=== PATIENT | male | born 1955 | race Caucasian/White ===

== ENCOUNTER 2016-06-03 11:41 | Emergency (ER) | payer OTHER ==
[~2016-06-03] VITALS: Ht 175.3 cm; Wt 93.9 kg
[~2016-06-03 11:41] MED LIST: ALPH-E-MIXED-4400 IU PO; AUGMENTIN 500M500 MG PO; CIPRO 500MG TA500 MG PO; FLAG500 PO; FLAGYL 25O MG250 M1 PO; HYDRALAZINE HCL25 MG PO; HYDRALAZINE HCL50 MG PO; MAGNESIUM CITR100 MG PO; MELOXICAM7.5 MG PO; NORVASC 10MG10 MG PO; OXYCODONE5 MG PO; PERCOCET 325 MG1 TA2 PO; VIAGRA25 M1 PO; VITAMIN B6200 M1 PO; ZETIA10 M1 PO
--- NOTE | 2016-06-03 12:00 | ED GENERAL ADULT ---
History of Present Illness General Chief Complaint: Dizziness Stated Complaint: DIZZINESS Vital Signs & Intake/Output Vital Signs & Intake/Output Vital Signs Date Time Temp Pulse Resp B/P Pulse O2 O2 Flow FiO2 Ox Delivery Rate 06/03 1218 98 Room Air 06/03 1144 96.5 61 20 155/83 99 Room Air Allergies Coded Allergies: NO KNOWN ALLERGIES (09/08/15) Reconcile Medications Ezetimibe (Zetia) 10 MG TAB 1 TAB PO DAILY LIPIDS (Reported) Triage Note: PT TO ED C/O RINGING IN EARS AND DIZZINESS X A COUPLE DAYS. C/O FEELING SHAKY AND CLAMY. Past History Travel History Traveled to [place] past 21 day No Medical History EENT: NONE Cardiovascular: hyperlipidemia Respiratory: NONE Gastrointestinal: diverticulitis, PERF BOWEL OMENTAL INFARCTION Hepatic: NONE Renal: KIDNEY STONES Musculoskeletal: NONE Psychiatric: NONE Endocrine: NONE Blood Disorders: NONE ASSESSMENT SPECIALIST/Reproductive: NONE History of MRSA: No History of VRE: No History of CDIFF: No Tetanus Vaccine: 01/26/16 Surgical History Surgical History: LITHOTRIPSY Psychosocial History Who do you live with Spouse What is your primary language [place] Citizen Tobacco Use: Quit >30 days ago ETOH Use: denies use Illicit Drug Use: marijuana Departure Departure Condition: Stable Referrals: STUART ROGEL,EDA Ibrahim (PCP/Family) Departure Forms: Customer Survey General Discharge Information
--- NOTE | 2016-06-03 12:51 | ED AMS/SEIZURE/WEAK/DIZZY ---
History of Present Illness General Chief Complaint: Dizziness Stated Complaint: DIZZINESS Source: patient, family Exam Limitations: no limitations Vital Signs & Intake/Output Vital Signs & Intake/Output ED Intake and Output 06/04 0000 06/03 1200 Intake Total Output Total Balance Patient 207 lb Weight Allergies Coded Allergies: NO KNOWN ALLERGIES (09/08/15) Reconcile Medications Ezetimibe (Zetia) 10 MG TAB 1 TAB PO DAILY LIPIDS (Reported) Levofloxacin (Levaquin) 500 MG TABLET 1 TAB PO DAILY UTI Triage Note: PT TO ED C/O RINGING IN EARS AND DIZZINESS X A COUPLE DAYS. C/O FEELING SHAKY AND CLAMY. Triage Nurses Notes Reviewed? yes HPI: 60-year-old male presents with 2 months of tinnitus bilaterally and now associated dizziness the last 4 days. He's had history of hypertension but is not on any medication at this time as his primary care doctor took him off his blood pressure medicines, he does not have any headaches or confusion. Earlier today his dizziness was a 9 out of 10, he had trouble walking. There is no presyncopal symptoms chest pain or palpitations no headaches. Currently his symptoms are 0 out of 10 as a resolved completely on their own without treatment. He has been having these episodes for the last 4 days intermittently. Symptoms are more frequent in the morning. HE denies hearling loss (TRINA SANTA) Past History Travel History Traveled to [place] past 21 day No Medical History Any Pertinent Medical History? 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 No (TRINA SANTA) Review of Systems Review of Systems Constitutional: Reports: see HPI. EENTM: Reports: see HPI. Respiratory: Reports: no symptoms. Cardiovascular: Reports: no symptoms. GI: Reports: no symptoms. Genitourinary: Reports: no symptoms. Musculoskeletal: Reports: no symptoms. Skin: Reports: no symptoms. Neurological/Psychological: Reports: see HPI. Hematologic/Endocrine: Reports: no symptoms. Immunologic/Allergic: Reports: no symptoms. All Other Systems: Reviewed and Negative (TRINA SANTA) Physical Exam Physical Exam General Appearance: well developed/nourished Comments: Well-developed well-nourished person in no acute distress HEENT: Right external auditory canal with moderate cerumen, extraocular motion intact, no nystagmus. Pupils equally round and reactive to light. Nose is atraumatic. B Tympanic membranes clear. Pharynx normal. No swelling or edema. Neck: Supple, no lymphadenopathy, normal range of motion without pain or tenderness Back: Nontender, no CVA tenderness. Full range of motion Cardiovascular: Regular rate and rhythms no murmurs, normal JVP Respiratory: Chest nontender. No respiratory distress. Breath sounds clear to auscultation bilaterally Abdomen: Soft, nontender nondistended, no appreciable organomegaly. Normal bowel sounds. No ascites Extremity: No edema, no calf tenderness to palpation, normal and equal pulses. Neuro: Alert oriented x3, motor sensory normal, cranial nerves II through XII grossly intact. Skin: No appreciable rash on exposed skin, skin is warm and dry. Psych: Mood and affect is normal, memory and judgment is normal. Core Measures ACS in differential dx? No CVA/TIA Diagnosis: No Severe Sepsis Present: No Septic Shock Present: No (TRINA SANTA) Progress Differential Diagnosis: arrythmia, alcohol intoxication, anemia, benign positional vertigo, CVA/stroke, dehydration, drug intoxication, encephalitis, electrolyte imbalance, GI bleed, hypoglycemia, hypoxia, intracranial Hem., intracranial mass/tumor, labrynthitis, meningitis, Meniere's disease, migraine PEDRO, multiple sclerosis, pneumonia, postural hypotension, presyncope, post- traumatic vertigo, sepsis, seizure disorder, subarachnoid Hem., UTI/pyelo, vertebrobasilar insuff Plan of Care: Orders Procedure Date/time Status Add-on Test (ER Only) 06/03 1357 Active CULTURE,URINE 06/03 1348 Active BLOOD CULTURE 06/03 1348 Active URINALYSIS 06/03 1348 Complete LACTIC ACID 06/03 1255 Complete Telemetry/Clinic Scheduler 06/03 1247 Active COMPREHENSIVE METABOLIC PANEL 06/03 1247 Complete CBC WITHOUT DIFFERENTIAL 06/03 1247 Complete EKG 06/03 1247 Active Laboratory Tests 06/03/16 1648: Lactic Acid Cancelled 06/03/16 1405: Urine Color YEL, Urine Clarity CLEAR, Urine pH 6.0, Ur Specific Blanchard >= 1.030 , Urine Protein TRACE H, Urine Ketones NEG, Urine Nitrite NEG, Urine Bilirubin NEG, Urine Urobilinogen 0.2, Ur Leukocyte Esterase SMALL H, Ur Microscopic SEDIMENT EXAMINED, Urine WBC 15-25 H, Urine Mucus MANY H, Urine Hemoglobin NEG , Urine Glucose NEG 06/03/16 1348: Lactic Acid Cancelled 06/03/16 1255: Lactic Acid 2.6 H 06/03/16 1255: Anion Gap 11, Estimated GFR > 60, BUN/Creatinine Ratio 24.4, Glucose 208 H, Calcium 9.4, Total Bilirubin 0.7, AST 27, ALT 33, Alkaline Phosphatase 64, Total Protein 7.7, Albumin 4.4, Globulin 3.3, Albumin/Globulin Ratio 1.3, CBC w Diff MAN DIFF ORDERED, RBC 5.55, MCV 83.5, MCH 27.8, RDW 13.6, MPV 8.4, Gran % 90.3 H, Lymphocytes % 4.4 L, Monocytes % 4.5, Eosinophils % 0.6, Basophils % 0.2, Absolute Granulocytes 18.4 H, Absolute Lymphocytes 0.9 L, Absolute Monocytes 0.9 H, Absolute Eosinophils 0.1, Absolute Basophils 0, Platelet Estimate ADEQUATE, Normocytic RBCs VERIFIED, Normochromic RBCs VERIFIED, PUBS MCHC 33.3 Microbiology 06/03 1432 BLOOD: Blood Culture - RECD 06/03 1422 BLOOD: Blood Culture - RECD 06/03 1405 URINE ROUT: Urine Culture - RECD Diagnostic Imaging: Viewed by Me: Radiology Read. Discussed w/RAD: Radiology Read. CXR Impression: no acute abnormality, no infiltrates Initial ED EKG: NSR, rate (58), nonspecific ST T wave chg (INF), abnormal Q waves (INF) Prior EKG: unchanged Rhythm Strip: normal sinus rhythm Comments: 06/03/2016 1:48:56 PM Patient's blood tests noted to have a mild elevation of blood sugar at 208 and elevated white blood cell count 20,000. Discussed with Dr. Aponte. Recommend pursuing septic workup at this time. Discussed with patient and , he was reevaluated and reexamined, he has no abdominal tenderness and no urinary symptoms no rashes no cough. We will pursue chest x-ray urinalysis urine culture blood cultures 2 and lactic acid. He remains asymptomatic on reevaluation. Urine is positive for the patient without significant symptoms of UTI, he does have a slightly elevated lactic acid as well. Blood cultures were obtained. He was seen by Dr. Aponte, we'll treat him with Levaquin for UTI and recommend following up with his primary care doctor next week as well as returning here in 2 days for reevaluation. 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 He declined anything at this time for dizziness (TRINA SANTA) Departure Departure Disposition: HOME OR SELF CARE Condition: Stable Clinical Impression Primary Impression: Leukocytosis Qualifiers: Leukocytosis type: unspecified Qualified Code: D72.829 - Elevated white blood cell count, unspecified Secondary Impressions: Hyperglycemia Menieres disease Qualifiers: Laterality: unspecified laterality Qualified Code: H81.09 - Meniere 's disease, unspecified ear UTI (urinary tract infection) Qualifiers: Urinary tract infection type: acute cystitis Hematuria presence: without hematuria Qualified Code: N30.00 - Acute cystitis without hematuria Referrals: STUART ROGEL,EDA Ibrahim (PCP/Family) Additional Instructions: Take antibiotics for your urinary tract infection and return to the ER in 2 days for reevaluation Please follow up with your doctor next week for repeat blood testing for your elevated white blood cell count 20,000 and elevated blood sugar to 208. Return to the area with any signs of infection such as fever or flulike illness, cough with sputum, rash, abdominal pain or urinary symptoms frequency urgency or burning. Departure Forms: Customer Survey General Discharge Information Prescriptions: Current Visit Scripts Levofloxacin (Levaquin) 1 TAB PO DAILY #10 TAB (TRINA SANTA) PA/ESCORT SERVICE ATTENDANT Co-Sign Statement Statement: ED Attending supervision documentation- [X] I saw and evaluated the patient. I have also reviewed all the pertinent lab results and diagnostic results. I agree with the findings and the plan of care as documented in the PA's/ESCORT SERVICE ATTENDANT's documentation. [] I have reviewed the ED Record and agree with the PA's/ESCORT SERVICE ATTENDANT's documentation. [] Additions or exceptions (if any) to the PAs/ESCORT SERVICE ATTENDANT's note and plan are summarized below: [] (JUDY APONTE DO)
[2016-06-03 13:04] LABS: ABSOLUTE BASOPHIL COUNT 0 /CUMM (0.0-0.2); ABSOLUTE EOSINOPHIL COUNT 0.1 /CUMM (0.0-0.7); ABSOLUTE GRANULOCYTE CT 18.4 /CUMM (1.4-6.5); ABSOLUTE LYMPH COUNT 0.9 /CUMM (1.2-3.4); ABSOLUTE MONOCYTE COUNT 0.9 /CUMM (0.10-0.60); BASOPHIL % 0.2 % (0.0-2.0); EOSINOPHIL % 0.6 % (0-5); GRANULOCYTE % 90.3 % (42.2-75.2); HEMATOCRIT 46.3 % (42-52); MEAN CORPUSCULAR HGB 27.8 PG (27.0-31.0); MEAN CORPUSCULAR HGB CONC 33.3 G/DL (33.0-37.0); MEAN CORPUSCULAR VOLUME 83.5 FL (80.0-94.0); MEAN PLATELET VOLUME 8.4 FL (7.4-10.4); PLATELET COUNT 248 /CUMM (130-400); RBC DISTRIBUTION WIDTH 13.6 % (11.5-14.5); RED BLOOD CELL CT 5.55 /CUMM (4.70-6.10); WHITE BLOOD CELL COUNT 20.4 /CUMM (4.8-10.8)
--- NOTE | 2016-06-03 14:23 | RADIOLOGY REPORT ---
EXAMINATION: XR CHEST CLINICAL INFORMATION: Elevated white blood cell count COMPARISON: None. TECHNIQUE: PA and lateral views of the chest were obtained. FINDINGS: The lungs are clear with no focal consolidation. No evidence of pneumothorax, pulmonary edema, or pleural effusions. Cardiac size is within normal limits. Calcification is present at the aortic arch. Degenerative changes are noted in the spine. IMPRESSION: No focal consolidation identified.
[2016-06-03] MEDS ORDERED: LEVAQUIN500 M1 PO (15:08)
[2016-06-03 15:17] VITALS: BP 151/84
== END 2016-06-03 15:18 ==
LOC: ERH 11:41
PROVIDERS: Physician Assistant Surgical
DX: D72.829 Elevated white blood cell count, unspecified (principal); R73.9 Hyperglycemia, unspecified; H81.03 Meniere's disease, bilateral; N39.0 Urinary tract infection, site not specified; R42 Dizziness and giddiness
CPT/HCPCS: 81001; 87040; 87086; 93005; 93010

== ENCOUNTER 2016-06-05 10:49 | Emergency (ER) | payer OTHER ==
[~2016-06-05] VITALS: Ht 177.8 cm; Wt 94.3 kg
[~2016-06-05 10:49] MED LIST changes: +LEVAQUIN500 M1 PO
--- NOTE | 2016-06-05 11:07 | ED GENERAL ADULT ---
History of Present Illness General Chief Complaint: General Adult Stated Complaint: SIB DR. APONTE FOR RE-EVALTION Source: patient Exam Limitations: no limitations Vital Signs & Intake/Output Vital Signs & Intake/Output Vital Signs Date Time Temp Pulse Resp B/P Pulse O2 O2 Flow FiO2 Ox Delivery Rate 06/05 1239 96.7 60 18 172/83 99 06/05 1055 97.6 64 18 175/82 99 Room Air Room Air Allergies Coded Allergies: NO KNOWN ALLERGIES (09/08/15) Reconcile Medications Ezetimibe (Zetia) 10 MG TAB 1 TAB PO DAILY LIPIDS (Reported) Levofloxacin (Levaquin) 500 MG TABLET 1 TAB PO DAILY UTI Triage Note: TRIAGE: 60 Y/O MALE PRESENTS FOR A "FOLLOW UP PER DR APONTE, SOME OF THE BLOODWORK FROM TUESDAY WASN'T GOING TO COME BACK UNTIL TODAY." PATIENT DENIES COMPLAINTS AT PRESENT. Triage Nurses Notes Reviewed? yes Onset: Abrupt Duration: day(s): Timing: recent history HPI: 06/05/16 11:20 AM 60-year-old man presents to the emergency department for follow-up blood work. The patient was seen and evaluated in the emergency department approximately 48 hours ago and found to have significant leukocytosis. He also had pyuria. He was empirically started on Levaquin. Today the emergency department he has no complaints there is no fever there is no dysuria there is no abdominal pain. The onset of the symptoms were abrupt, the duration has been approximately 3 days, the severity is significant as his symptoms required to come to the emergency department for care. CBC and chemistry repeated. The patient's physical exam today is completely unremarkable Past History Travel History Traveled to [place] past 21 day No Medical History Any Pertinent Medical History? 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 No Review of Systems Review of Systems Constitutional: Denies: fever. EENTM: Denies: visual changes. Respiratory: Denies: short of breath. Cardiovascular: Denies: chest pain. GI: Denies: abdominal pain. Genitourinary: Denies: dysuria. Musculoskeletal: Reports: no symptoms. Skin: Reports: no symptoms. Neurological/Psychological: Reports: no symptoms. Hematologic/Endocrine: Reports: no symptoms. Immunologic/Allergic: Reports: no symptoms. Physical Exam Physical Exam General Appearance: well developed/nourished, alert, awake, anxious, mild distress Head: atraumatic, normal appearance Eyes: Bilateral: normal appearance, PERRL, EOMI. Ears, Nose, Throat: normal pharynx, normal ENT inspection Neck: normal inspection, supple Respiratory: normal breath sounds, chest non-tender, no respiratory distress Cardiovascular: regular rate/rhythm Peripheral Pulses: 4+ radial (R), 4+ radial (L) Gastrointestinal: soft, non-tender Back: normal range of motion Extremities: normal inspection, normal range of motion, no edema Neurologic/Psych: no motor/sensory deficits, awake, alert, oriented x 3 Skin: intact, normal color, warm/dry Core Measures ACS in differential dx? No CVA/TIA Diagnosis: No Severe Sepsis Present: No Septic Shock Present: No Progress Differential Diagnoses I considered the following diagnoses in my evaluation of the patient: [Sepsis, myeloproliferative disorder, viral syndrome] Plan of Care: Orders Procedure Date/time Status COMPREHENSIVE METABOLIC PANEL 06/05 1107 Complete CBC WITHOUT DIFFERENTIAL 06/05 1107 Complete Laboratory Tests 06/05/16 1122: Anion Gap 11, Estimated GFR > 60, BUN/Creatinine Ratio 25.6 H, Glucose 112 H, Calcium 9.4, Total Bilirubin 0.6, AST 23, ALT 37, Alkaline Phosphatase 62, Total Protein 7.6, Albumin 4.2, Globulin 3.4, Albumin/Globulin Ratio 1.2, CBC w Diff NO MAN DIFF REQ, RBC 5.50, MCV 82.9, MCH 27.7, RDW 13.5, MPV 8.7, Gran % 65.4, Lymphocytes % 20.7, Monocytes % 7.9, Eosinophils % 5.1 H, Basophils % 0.9, Absolute Granulocytes 5.9, Absolute Lymphocytes 1.9, Absolute Monocytes 0.7 H, Absolute Eosinophils 0.5, Absolute Basophils 0.1, PUBS MCHC 33.5 Initial ED EKG: none Departure Departure Disposition: HOME OR SELF CARE Condition: Stable Clinical Impression Primary Impression: Leukocytosis Referrals: STUART ROGEL,EDA Ibrahim (PCP/Family) Departure Forms: Customer Survey General Discharge Information Comments Repeat white blood cell count normal. Cultures all negative. The patient will follow-up with his doctor this week and have his blood pressure rechecked. Critical Care Note Critical Care Note Critical Care Time: non-applicable
[2016-06-05 12:02] LABS: ABSOLUTE BASOPHIL COUNT 0.1 /CUMM (0.0-0.2); ABSOLUTE EOSINOPHIL COUNT 0.5 /CUMM (0.0-0.7); BASOPHIL % 0.9 % (0.0-2.0); MEAN CORPUSCULAR HGB 27.7 PG (27.0-31.0); MEAN CORPUSCULAR HGB CONC 33.5 G/DL (33.0-37.0)
[2016-06-05 12:05] LABS: ABSOLUTE GRANULOCYTE CT 5.9 /CUMM (1.4-6.5); ABSOLUTE LYMPH COUNT 1.9 /CUMM (1.2-3.4); ABSOLUTE MONOCYTE COUNT 0.7 /CUMM (0.10-0.60); EOSINOPHIL % 5.1 % (0-5); GRANULOCYTE % 65.4 % (42.2-75.2); HEMATOCRIT 45.6 % (42-52); MEAN CORPUSCULAR VOLUME 82.9 FL (80.0-94.0); MEAN PLATELET VOLUME 8.7 FL (7.4-10.4); PLATELET COUNT 251 /CUMM (130-400); RBC DISTRIBUTION WIDTH 13.5 % (11.5-14.5)
[2016-06-05 12:07] LABS: WHITE BLOOD CELL COUNT 9.1 /CUMM (4.8-10.8)
[2016-06-05 12:39] VITALS: BP 172/83
== END 2016-06-05 12:45 ==
LOC: ERH 10:49
PROVIDERS: Emergency Medicine
DX: D72.829 Elevated white blood cell count, unspecified (principal)

== ENCOUNTER 2016-06-24 12:31 | Emergency (ER) | payer OTHER ==
[~2016-06-24] VITALS: Ht 177.8 cm; Wt 94.3 kg
[2016-06-24 14:06] VITALS: BP 156/78
[2016-06-24] MEDS ORDERED: AMLODIPINE BESYL5 M1 PO (14:14)
[2016-06-24] MEDS ORDERED: VIAGRA100 M1 PO (14:14)
--- NOTE | 2016-06-24 14:49 | RADIOLOGY REPORT ---
EXAMINATION: XR FINGER, LEFT CLINICAL INFORMATION: Pain cut with table saw 2nd and 3rd finger. COMPARISON: None. TECHNIQUE: Three views of the left left 2nd and 3rd fingers including AP view of the hand. FINDINGS: There are overlying soft tissue dressings overlying the ends of the 2nd and 3rd fingers. I do not see a fracture. I do not see a radiopaque foreign body. There may be some subtle soft tissue swelling. In the hand there is subchondral cystic change at the 3rd MCP joint and 2nd MCP joint and the DIP joint of the 3rd finger indicative of mild arthrosis. The remaining bone and joints are unremarkable. IMPRESSION: No fracture or radiopaque foreign body. Question subtle soft tissue swelling in the 2nd and 3rd fingers overlying soft tissue dressing.
--- NOTE | 2016-06-24 15:31 | ED HAND/WRIST INJURY COMPLAINT ---
History of Present Illness General Chief Complaint: Hand or Wrist Injury Stated Complaint: FINGER LAC Source: patient Exam Limitations: no limitations Vital Signs & Intake/Output Vital Signs & Intake/Output Vital Signs Date Time Temp Pulse Resp B/P Pulse O2 O2 Flow FiO2 Ox Delivery Rate 06/24 1406 Room Air 06/24 1406 156/78 06/24 1244 97.3 69 18 170/110 100 Room Air Allergies Coded Allergies: NO KNOWN ALLERGIES (09/08/15) Reconcile Medications Amlodipine Besylate 5 MG TABLET 1 TAB PO DAILY HIGH BLOOD PRESSURE (Reported) Ezetimibe (Zetia) 10 MG TABLET 1 TAB PO DAILY HIGH CHOLESTROL (Reported) Sildenafil Citrate (Viagra) 100 MG TABLET 1 TAB PO DAILY NEEDED SEXUAL HEALTH (Reported) 1 hour before sexual activity Triage Note: 2 LACERATIONS TO LEFT FIRST AND SECOND FINGERS (PROXIMAL TIP), CUT ON TABLE SAW AT HOME. TETANUS IS UP TO DATE. Triage Nurses Notes Reviewed? yes Occurred: just prior to arrival Duration: hour(s):, constant, continues in ED Timing: recent history Injury Environment: home Method of Injury: laceration No Modifying Factors: none HPI: 60-year-old male comes into emergency room with complaints of laceration to left second and third finger. Patient reports that he cut it on a table saw. Tetanus shot up-to-date. Some associated bleeding. Denies any other associated symptoms. Mild throbbing pain. Denies any other associated symptoms. Past History Travel History Traveled to [place] past 21 day No Medical History Any Pertinent Medical History? see below for history Neurological: NONE EENT: NONE Cardiovascular: hyperlipidemia Respiratory: NONE Gastrointestinal: diverticulitis, PERF BOWEL OMENTAL INFARCTION Hepatic: NONE Renal: KIDNEY STONES Musculoskeletal: NONE Psychiatric: NONE Endocrine: NONE Blood Disorders: NONE Cancer(s): NONE PATIENT SERVICE REP/Reproductive: NONE History of MRSA: No History of VRE: No History of CDIFF: No Tetanus Vaccine: 01/26/16 Surgical History Surgical History: LITHOTRIPSY Psychosocial History Who do you live with Spouse What is your primary language Guyanese Tobacco Use: Never used ETOH Use: occasional use Family History Hx Contributory? No Review of Systems Review of Systems Constitutional: Reports: no symptoms. EENTM: Reports: no symptoms. Respiratory: Reports: no symptoms. Cardiovascular: Reports: no symptoms. GI: Reports: no symptoms. Genitourinary: Reports: no symptoms. Musculoskeletal: Reports: see HPI. Skin: Reports: see HPI. Neurological/Psychological: Reports: no symptoms. Hematologic/Endocrine: Reports: no symptoms. Immunologic/Allergic: Reports: no symptoms. All Other Systems: Reviewed and Negative Physical Exam Physical Exam General Appearance: well developed/nourished, mild distress Head: atraumatic Eyes: Bilateral: normal appearance. Ears, Nose, Throat: normal ENT inspection, hearing grossly normal Neck: normal inspection Cardiovascular/Respiratory: no respiratory distress Back: normal inspection Hand Left: 2nd finger, 3rd finger, lacerations to second and third finger, mild involvement of the distal nailbed, associated bleeding, cap refill intact, sensation intact, Hand Right: normal inspection Neurologic/Tendon: normal sensation, normal motor functions, normal tendon functions, responds to pain, no evidence tendon injury, no pulse deficit Skin: intact, normal color, warm/dry Lymphatic: no anterior cervical elizabeth Progress Differential Diagnosis: dislocation, fracture, paronychia, septic arthritis, sprain, tenosynovitis Plan of Care: 06/24/2016 4:37:16 PM Patient tolerated procedure well. Return in 7-10 days for suture removal. Diagnostic Imaging: Viewed by Me: Radiology Read. Discussed w/RAD: Radiology Read. Comments: EXAM TYPE: RAD - XRY-FINGERS, LEFT EXAMINATION: XR FINGER, LEFT CLINICAL INFORMATION: Pain cut with table saw 2nd and 3rd finger. COMPARISON: None. TECHNIQUE: Three views of the left left 2nd and 3rd fingers including AP view of the hand. FINDINGS: There are overlying soft tissue dressings overlying the ends of the 2nd and 3rd fingers. I do not see a fracture. I do not see a radiopaque foreign body. There may be some subtle soft tissue swelling. In the hand there is subchondral cystic change at the 3rd MCP joint and 2nd MCP joint and the DIP joint of the 3rd finger indicative of mild arthrosis. The remaining bone and joints are unremarkable. IMPRESSION: No fracture or radiopaque foreign body. Question subtle soft tissue swelling in the 2nd and 3rd fingers overlying soft tissue dressing. DICTATED BY: AKIN COPELAND MD DATE/TIME DICTATED:06/24/16 1437 PHYSICAL SCIENTIST:DANN Departure Departure Disposition: HOME OR SELF CARE Condition: Stable Clinical Impression Primary Impression: Finger laceration Referrals: STUART ROGEL,EDA Ibrahim (PCP/Family) Additional Instructions: Return in 7-10 days for suture removal. Keep covered with bacitracin and dry dressing. Return if any other concerns worsening symptoms. Leave this dressing in place for 3 days. Change dressing daily. Keep dry as possible. If dressing gets wet pat IT down dry and cover backup with dry dressing. Please go over all results of today's visit with your primary care doctor. Contact your primary care doctor to let them know you were here in the emergency room. There may be nonspecific findings which may not be related to your visit today here in the emergency room but may require further evaluation and chronic monitoring by your primary care doctor. If you had a laceration today the chance of foreign body always remains. You should follow-up with your primary care doctor for recheck in 3-5 days for a wound check. If you had an x-ray done there is a chance that a fracture could have been missed on initial read and you should follow-up with your primary care doctor for repeat x-rays if symptoms persist. If your blood pressure was elevated here in the emergency room please have rechecked by her primary care doctor within the next 48 hours by your primary care doctor. If you were prescribed a narcotic here in the emergency room or any type of controlled substances you're not allowed to drive while taking this medication or operate any type of heavy machinery. Narcotics can make you feel lightheaded dizziness nausea and can cause constipation. You may need to excelsior picker a stool softener. Thank you for choosing [facility] emergency room. Please return to the emergency room immediately if you have any other concerns worsening of symptoms. Departure Forms: Customer Survey General Discharge Information Procedures Laceration/Wound Repair Progress: Laceration to left second and third and neck finger, Betadine prep, irrigated with 1 L of saline, local lidocaine 2%, 3 mL injected, 4. 0 nylon/5. 0 nylon used, sterile technique, patient tolerated procedure well, sterile dressing applied with bacitracin
== END 2016-06-24 15:48 ==
LOC: ERH 12:31
DX: S61.211A Laceration without foreign body of left index finger without damage to nail, initial encounter (principal); S61.213A Laceration without foreign body of left middle finger without damage to nail, initial encounter; W31.2XXA Contact with powered woodworking and forming machines, initial encounter
CPT/HCPCS: 73140-LT; J2001

== ENCOUNTER 2016-07-29 10:42 | Emergency (ER) | payer OTHER ==
[~2016-07-29] VITALS: Ht 177.8 cm; Wt 99.8 kg
[~2016-07-29 10:42] MED LIST changes: +AMLODIPINE BESYL5 M1 PO; +VIAGRA100 M1 PO
--- NOTE | 2016-07-29 11:15 | ED HAND/WRIST INJURY COMPLAINT ---
History of Present Illness General Chief Complaint: Laceration Procedure Stated Complaint: LAC TO FINGER Source: patient Exam Limitations: no limitations Vital Signs & Intake/Output Vital Signs & Intake/Output Vital Signs Date Time Temp Pulse Resp B/P Pulse O2 O2 Flow FiO2 Ox Delivery Rate 07/29 1213 97.8 63 16 136/83 98 Room Air 07/29 1057 97.5 71 20 154/105 99 Room Air Allergies Coded Allergies: NO KNOWN ALLERGIES (09/08/15) Reconcile Medications Amlodipine Besylate 5 MG TABLET 1 TAB PO DAILY HIGH BLOOD PRESSURE (Reported) Ezetimibe (Zetia) 10 MG TABLET 1 TAB PO DAILY HIGH CHOLESTROL (Reported) Triage Note: STATES HE CUT IS LEFT MIDDLE FINGER ON A PIPE YESTERDAY AT 1400, (FLAP LACEATION). DRESSING IN PLACE. NOT VISULAIZED IN TRIAGE. Triage Nurses Notes Reviewed? yes Occurred: yesterday Duration: day(s): (1) Timing: remote history Injury Environment: home Severity: mild Severity Numbers: 2 Pain/Injury Location: Left: 3rd finger. Context: laceration Method of Injury: direct blow, laceration Modifying Factors: Improves With: immobilization. HPI: Patient is a 60-year-old male presenting to the emergency department with chief complaint of left middle finger pain, laceration that happened around 2 PM yesterday. Her percent he cleaned it off immediately with soap and water and has been keeping it clean and covered. Denies any increased pain but is [place] him to come and get evaluated. He is up-to-date with tetanus. Pain is mild achy and throbbing worse with palpation. Denies numbness or tingling. Denies any restricted range of motion. No fevers or chills. Has been taking Tylenol for the pain with some relief. (DEBBIE CARRASCO) Past History Travel History Traveled to [place] past 21 day No Medical History Any Pertinent Medical History? see below for history Neurological: NONE EENT: NONE Cardiovascular: hyperlipidemia Respiratory: NONE Gastrointestinal: diverticulitis, PERF BOWEL OMENTAL INFARCTION Hepatic: NONE Renal: KIDNEY STONES Musculoskeletal: NONE Psychiatric: NONE Endocrine: NONE Blood Disorders: NONE Cancer(s): NONE OPERATIONS FORESTER/Reproductive: NONE History of MRSA: No History of VRE: No History of CDIFF: No Tetanus Vaccine: 01/26/16 Surgical History Surgical History: LITHOTRIPSY Psychosocial History Who do you live with Spouse What is your primary language Bangladeshi Tobacco Use: Never used ETOH Use: occasional use Family History Hx Contributory? No (ETHAN FRANKLIN,DEBBIE) Review of Systems Review of Systems Constitutional: Reports: no symptoms. Comments Review of systems: See HPI, All other systems negative. Constitutional, no chills fever or weight loss HEENT: No visual changes no sore throat no congestion Cardiovascular: No chest pain ,palpitation , orthopnea or ankle swelling Skin, no jaundice no rashes Respiratory: No dyspnea cough sputum or hemoptysis GI: No nausea no vomiting : No dysuria No hematuria Muscle skeletal: no back pain, no neck pain, Neurologic: No numbness no confusion Psych: No stress anxiety or depression,. Heme/endocrine: No bruising no bleeding no polyuria or polydipsia Immunology: No splenectomy or history of AIDS (ETHAN FRANKLIN,DEBBIE) Physical Exam Physical Exam General Appearance: well developed/nourished, no apparent distress, alert, awake , comfortable Hand Left: lacerations Hand Right: normal inspection, normal range of motion Comments: Well-developed well-nourished no apparent distress. HEENT: Atraumatic, extraocular motion intact Neck: Supple, no lymphadenopathy Back: Nontender Respiratory: No respiratory distress Extremities: Mild edema noted at the distal tip of the left middle finger. Full range of motion. Capillary refills intact and approximates bilaterally. Radial pulses are 2+ bilaterally. Skin: Flap-like laceration noticed at the distal tip of the left middle finger, no active bleeding. No surrounding erythema. Mild edema. Mild ecchymosis noted. No nail injury. Neuro: Alert and oriented x3 Psych: Mood affect normal, normal memory normal judgment. (ETHAN FRANKLIN,DEBBIE) Progress Differential Diagnosis: contusion, dislocation, fracture, sprain, LACERATION, ABRASION, FRACTURE Plan of Care: Orders Procedure Date/time Status XRY-FINGERS, LEFT 07/29 1113 Active Diagnostic Imaging: Viewed by Me: Radiology Read. Discussed w/RAD: Radiology Read. Radiology Impression: PATIENT: SHAE FIGUEROA PRESENT AGE: 60 PATIENT ACCOUNT NO: [id number] : 53 LOCATION: [facility] ORDERING PHYSICIAN: DEBBIE FRANKLIN SERVICE DATE: 07/29/16-1114 EXAM TYPE: RAD - XRY-FINGERS, LEFT EXAMINATION: XR FINGER, LEFT CLINICAL INFORMATION: Evaluate for fracture left middle finger COMPARISON: X-ray dated 06/24/2016 TECHNIQUE: Three views of the left middle finger. FINDINGS: Normal bony mineralization. No obvious fracture lines identified. Subtle lucency base of the distal phalanx third finger is slightly more obvious on the current examination. It is most likely attributed to subcortical cystic change and prominence of the trabecular pattern. Degenerative changes interphalangeal joint. IMPRESSION: No definite evidence of acute fracture. Degenerative changes and subcortical cystic change of the distal phalanx third finger. (DEBBIE CARRASCO) Departure Departure Time of Disposition: 1200 Disposition: HOME OR SELF CARE Condition: Stable Clinical Impression Primary Impression: Contusion Qualifiers: Encounter type: initial encounter Contusion area: finger Finger: middle finger Damage to nail status: without damage Laterality: left Qualified Code: S60.032A - Contusion of left middle finger without damage to nail, initial encounter Secondary Impressions: Laceration Referrals: STUART ROGEL,EDA Ibrahim (PCP/Family) Additional Instructions: Follow-up with her primary care physician call to make an appointment. Keep clean and dry. Take Motrin and Tylenol [id number] as directed. Return for worsening symptoms or concerns. Departure Forms: Customer Survey General Discharge Information (DEBBIE CARRASCO) PA/[employer] OFFICE MANAGER Co-Sign Statement Statement: ED Attending supervision documentation- [] I saw and evaluated the patient. I have also reviewed all the pertinent lab results and diagnostic results. I agree with the findings and the plan of care as documented in the PA's/HOTEL FRONT OFFICE MANAGER's documentation. [x] I have reviewed the ED Record and agree with the PA's/HOTEL FRONT OFFICE MANAGER's documentation. [] Additions or exceptions (if any) to the PAs/HOTEL FRONT OFFICE MANAGER's note and plan are summarized below: [] (JUDY APONTE DO) Procedures Additional Procedures Additional Procedures: WOUND CARE Progress: Wound was cleaned with Betadine, bacitracin placed with sterile dressing. (DEBBIE CARRASCO)
--- NOTE | 2016-07-29 11:56 | RADIOLOGY REPORT ---
EXAMINATION: XR FINGER, LEFT CLINICAL INFORMATION: Evaluate for fracture left middle finger COMPARISON: X-ray dated 06/24/2016 TECHNIQUE: Three views of the left middle finger. FINDINGS: Normal bony mineralization. No obvious fracture lines identified. Subtle lucency base of the distal phalanx third finger is slightly more obvious on the current examination. It is most likely attributed to subcortical cystic change and prominence of the trabecular pattern. Degenerative changes interphalangeal joint. IMPRESSION: No definite evidence of acute fracture. Degenerative changes and subcortical cystic change of the distal phalanx third finger.
[2016-07-29 12:13] VITALS: BP 136/83
== END 2016-07-29 12:14 ==
LOC: ERH 10:42
DX: S61.213A Laceration without foreign body of left middle finger without damage to nail, initial encounter (principal); S60.032A Contusion of left middle finger without damage to nail, initial encounter; W45.8XXA Other foreign body or object entering through skin, initial encounter; Y93.9 Activity, unspecified; Y92.9 Unspecified place or not applicable
CPT/HCPCS: 73140-LT